=== PATIENT | female | born 1955 | race Caucasian/White ===

== ENCOUNTER 2018-09-03 15:43 | Emergency (ER) | payer OTHER ==
[~2018-09-03] VITALS: Ht 162.6 cm; Wt 59.0 kg
[~2018-09-03 15:43] MED LIST: BLADDER 2.2 TA1 EACH PO; CALCIUM + D3 E1 EACH PO; IBUPROFEN 200200 M1 PO; NORCO 5-325 TA1 EACH PO; POTASSIUM99 M1 PO; VALIUM5 MG PO; VITAMIN D400 UNI1 PO
[2018-09-03] MEDS ORDERED: LODINE 200MG C200 M1 PO (16:10)
[2018-09-03] MEDS ORDERED: CLARITIN10 MG PO (16:13)
[2018-09-03] MEDS ORDERED: UNICOMPLEX M TA1 TA1 PO (16:16)
[2018-09-03] MEDS ORDERED: IBUPROFEN 400400 M2 PO (16:17)
[2018-09-03] MEDS ORDERED: CALCIUM PO (16:17)
[2018-09-03] MEDS ORDERED: VITAMIN D3400 UNIT PO (16:18)
[2018-09-03] MEDS ORDERED: MEDROLDOSEPACK PO (16:35)
[2018-09-03 16:46] VITALS: BP 126/73
== END 2018-09-03 16:47 | disposition home or self-care (01) ==
LOC: M.ERS 15:43
DX: H93.11 Tinnitus, right ear (principal); H92.01 Otalgia, right ear; M19.90 Unspecified osteoarthritis, unspecified site

== ENCOUNTER → 2019-07-26 | Outpatient (CLI) | payer MEDICARE, OTHER ==
[~2019-07-26] MED LIST changes: +CALCIUM PO; +CLARITIN10 MG PO; +IBUPROFEN 400400 M2 PO; +LODINE 200MG C200 M1 PO; +MEDROLDOSEPACK PO; +UNICOMPLEX M TA1 TA1 PO; +VITAMIN D3400 UNIT PO
== END ==
LOC: M.RAD 14:55
DX: Z12.31 Encounter for screening mammogram for malignant neoplasm of breast (principal)

== ENCOUNTER → 2021-01-08 | Outpatient (CLI) | payer MEDICARE, OTHER | LOC: M.RAD 12:04 | PROVIDERS: ATTEND Internal Medicine | DX: Z12.31 Encounter for screening mammogram for malignant neoplasm of breast (principal); M19.042 Primary osteoarthritis, left hand; M19.041 Primary osteoarthritis, right hand ==

== ENCOUNTER → 2021-01-14 | Outpatient (CLI) | payer MEDICARE, OTHER | LOC: M.ULTRA 11:25 | PROVIDERS: ATTEND Internal Medicine | DX: N60.01 Solitary cyst of right breast (principal); N63.10 Unspecified lump in the right breast, unspecified quadrant ==